=== PATIENT | female | born 1970 | race Caucasian/White ===

== ENCOUNTER 2018-06-22 09:48 | Emergency (ER) | payer OTHER ==
[~2018-06-22] VITALS: Ht 172.7 cm; Wt 125.2 kg
[~2018-06-22 09:48] MED LIST: AMLODIPINE BESY10 M1 PO; ARMOUR THYROID60 MG PO; ASPIR 8181 MG PO; BAY PO; BENADRYL ALLERG25 M1 PO; COLACE100 MG PO; DOXYCYCLINE100 MG PO; FLA500I IV; L40 PO; LAC PO; LASIX20 MG PO; LEVOFLOXACIN500 M1 PO; LEVOTHYROXINE0.1 M2 PO; LOP50 PO; MAPAP EXTRA ST500 MG PO; MAX PO; MAXZIDE1 TAB PO; METFORMIN500 M1 PO; METOPROLOL TART25 M1 PO; MEV20 PO; MIC8 PO; MOT800 PO; MOTRIN800 MG PO; NAP500 PO; NOR10 PO; NOR5 PO; NORCO1 TA2 PO; NP THYROID60 MG PO; NP THYROID90 MG PO; OMEPRAZOLE40 M1 PO; PENTOXIFYL XR400 M1 PO; PRI20 PO; PRILOSEC40 MG PO; TRE400 PO; TRIAMTERENE PO; ULT50 PO; ZES20 PO; ZESTRIL20 MG PO; ZOS3PM IV; [UNRECOGNIZED DRUG - OTHER] OU; [UNRECOGNIZED DRUG - OTHER] PO
[2018-06-22 09:53] VITALS: Ht 172.7 cm; Wt 125.2 kg
[2018-06-22 10:41] VITALS: BP 125/97
== END 2018-06-22 10:41 | disposition home or self-care (01) ==
LOC: ED 09:48
DX: S09.8XXA Other specified injuries of head, initial encounter (principal); J45.909 Unspecified asthma, uncomplicated; I10 Essential (primary) hypertension; F41.9 Anxiety disorder, unspecified; E78.00 Pure hypercholesterolemia, unspecified; K21.9 Gastro-esophageal reflux disease without esophagitis; Z90.710 Acquired absence of both cervix and uterus; Z98.890 Other specified postprocedural states; Z88.8 Allergy status to other drugs, medicaments and biological substances; Z88.6 Allergy status to analgesic agent; Z91.040 Latex allergy status; W01.0XXA Fall on same level from slipping, tripping and stumbling without subsequent striking against object, initial encounter; Y93.E9 Activity, other interior property and clothing maintenance; Y92.89 Other specified places as the place of occurrence of the external cause; Y99.8 Other external cause status

== ENCOUNTER 2018-07-16 07:28 | Emergency (ER) | payer OTHER ==
[~2018-07-16] VITALS: Ht 165.1 cm; Wt 122.5 kg
[2018-07-16 07:37] VITALS: Ht 165.1 cm; Wt 122.5 kg
[2018-07-16 09:38] VITALS: BP 158/72
== END 2018-07-16 09:38 | disposition home or self-care (01) ==
LOC: ED 07:28
DX: B34.9 Viral infection, unspecified (principal); J45.901 Unspecified asthma with (acute) exacerbation; I10 Essential (primary) hypertension; F41.9 Anxiety disorder, unspecified; K21.9 Gastro-esophageal reflux disease without esophagitis; E03.9 Hypothyroidism, unspecified; E78.00 Pure hypercholesterolemia, unspecified; Z98.890 Other specified postprocedural states; Z88.5 Allergy status to narcotic agent; Z88.6 Allergy status to analgesic agent; Z88.8 Allergy status to other drugs, medicaments and biological substances; Z91.040 Latex allergy status; Z90.710 Acquired absence of both cervix and uterus; Z88.4 Allergy status to anesthetic agent
CPT/HCPCS: 87804

== ENCOUNTER 2019-02-19 12:10 | Emergency (ER) | payer OTHER ==
[~2019-02-19] VITALS: Ht 165.1 cm; Wt 124.7 kg
[2019-02-19 12:17] VITALS: Ht 165.1 cm; Wt 124.7 kg
[2019-02-19 14:15] LABS: CALCIUM 9.4 mg/dL (8.5-10.1); CARBON DIOXIDE 28.2 mmol/L (21-32); CHLORIDE SERUM 104 mmol/L (98-107); CREATININE SERUM 0.6 mg/dL (0.6-1.0); GFR1 > 60 mL/min; GLUCOSE SERUM 107 mg/dL (74-106); POTASSIUM SERUM 3.9 mmol/L (3.5-5.1); SODIUM SERUM 142 mmol/L (136-145)
[2019-02-19 14:19] LABS: ALBUMIN 3.7 g/dL (3.4-5.0); ALKALINE PHOSPHATASE 90 U/L (46-116); ALT/SGPT 41 U/L (14-59); AST/SGOT 24 U/L (15-37); BILIRUBIN TOTAL 0.91 mg/dL (0.20-1.00); LIPASE 75 IU/L (73-393); TOTAL PROTEIN, SERUM 8.1 g/dL (6.4-8.2)
[2019-02-19 14:21] LABS: BASOPHIL % 0.3 % (0-2); PLATELET COUNT 251 x10^3mcL (130-400); RED CELL DISTRIBUTION WIDTH 12.7 % (11.5-14.5)
[2019-02-19 16:30] VITALS: BP 151/94
== END 2019-02-19 16:30 | disposition left against medical advice (07) ==
LOC: ED 12:10
PROVIDERS: Emergency Medicine
DX: S30.1XXA Contusion of abdominal wall, initial encounter (principal); I10 Essential (primary) hypertension; J45.909 Unspecified asthma, uncomplicated; F41.9 Anxiety disorder, unspecified; E78.00 Pure hypercholesterolemia, unspecified; K21.9 Gastro-esophageal reflux disease without esophagitis; Z98.890 Other specified postprocedural states; Z90.710 Acquired absence of both cervix and uterus; Z88.5 Allergy status to narcotic agent; Z88.8 Allergy status to other drugs, medicaments and biological substances; Z91.040 Latex allergy status; Z88.4 Allergy status to anesthetic agent; X58.XXXA Exposure to other specified factors, initial encounter; Y93.89 Activity, other specified; Y92.89 Other specified places as the place of occurrence of the external cause; Y99.8 Other external cause status
CPT/HCPCS: 36415; 83880; Q9967

== ENCOUNTER 2020-05-25 17:06 | Emergency (ER) | payer OTHER ==
[~2020-05-25] VITALS: Ht 165.1 cm; Wt 119.7 kg
[2020-05-25 17:18] VITALS: Ht 165.1 cm; Wt 119.7 kg
[2020-05-25 18:12] VITALS: BP 155/104
== END 2020-05-25 18:12 | disposition home or self-care (01) ==
LOC: ED 17:06
DX: M17.12 Unilateral primary osteoarthritis, left knee (principal); J45.909 Unspecified asthma, uncomplicated; I10 Essential (primary) hypertension; K21.9 Gastro-esophageal reflux disease without esophagitis; E78.00 Pure hypercholesterolemia, unspecified; E03.9 Hypothyroidism, unspecified; Z88.5 Allergy status to narcotic agent